=== PATIENT | female | born 1980 | race Caucasian/White ===

== ENCOUNTER → 2018-02-28 19:06 | Outpatient (CLI) | payer OTHER, SELFPAY ==
[2018-03-07 10:34] LABS: HPV APTIMA, High Risk Negative (Negative)
== END ==
PROVIDERS: Family Provider Family Medicine; PCP Family Medicine; Visit Provider Nurse Practitioner Women's Health
DX: R35.0 Frequency of micturition (principal)
CPT/HCPCS: 87086; 87088; 87186; 88175; G0145

== ENCOUNTER → 2018-03-04 08:51 | Outpatient (CLI) | payer SELFPAY ==
--- NOTE | 2018-03-04 08:54 | US_ITS ---
STUDY: ULTRASOUND BREAST - RIGHT REASON FOR EXAM: Female, 38 years old. Bilateral breast lumps. TECHNIQUE: Axial and longitudinal images of the RIGHT breast were performed with a high resolution ultrasound transducer. COMPARISON: Comparison is made with prior mammogram done earlier today. FINDINGS: RIGHT Breast: Multiple cysts are seen in the breast. The largest is at the 9:00 position of the breast at 3 cm from nipple. This measures 1.6 cm x 1.8 cm x 0.8 IMPRESSION: Multiple cysts. ASSESSMENT CATEGORY: BIRADS Category 2: Benign. A letter regarding these results will be sent to the patient by the facility within 30 days. Electronically Signed: Mark Hester MD at 12:16 EDT Tel [phone], Service support , STUDY: ULTRASOUND BREAST - LEFT REASON FOR EXAM: Female, 38 years old. Palpable lump left breast. TECHNIQUE: Axial and longitudinal images of the LEFT breast were performed with a high resolution ultrasound transducer. COMPARISON: Comparison is made with prior mammogram done earlier today. FINDINGS: LEFT Breast: Multiple cysts are seen. The largest measures 2.3 cm x 1.8 cm x 1 cm. This is at the 2:00 position in the breast at 5 cm from the nipple. US/Breast Limited Unilateral IMPRESSION: Multiple cysts. ASSESSMENT CATEGORY: BIRADS Category 2: Benign. A letter regarding these results will be sent to the patient by the facility within 30 days. Electronically Signed: Mark Hester MD at 12:17 EDT Tel [phone], Service support ,
--- NOTE | 2018-03-04 08:54 | BI_ITS ---
MAMMOGRAPHY - BILATERAL DIAGNOSTIC REASON FOR EXAM: Female, 38 years old. Right breast lump. PERTINENT HISTORY: Non-contributory. TECHNIQUE: Digital bilateral breast sha (3D mammographic acquisition) in the CC and MLO projections. 2-D mediolateral oblique (MLO) and craniocaudad (CC) views of both breasts were obtained. CAD: Full Field Digital Mammography with Computer Added Detection was performed. COMPARISON: None. Baseline examination. FINDINGS: Breast Composition: The breasts are extremely dense, which lowers the sensitivity of mammography. There are no dominant masses or suspicious calcifications. No other significant abnormalities are identified. BI/DIAG MAMM W/CAD, BILAT IMPRESSION: Negative diagnostic mammogram. With the patient's history of right breast lump, sonographic correlation is recommended. ASSESSMENT CATEGORY: BIRADS Category 0: Incomplete. Need additional imaging evaluation. A letter regarding these results will be sent to the patient by the facility within 30 days. Approximately 10% of breast cancers are not detected by mammography. A normal mammogram should not delay biopsy of a clinically suspicious abnormality. Electronically Signed: Mark Hester MD at 10:54 EDT Tel [phone], Service support ,
== END ==
PROVIDERS: Family Provider Family Medicine; PCP Family Medicine; Visit Provider Nurse Practitioner Women's Health
DX: N63.10 Unspecified lump in the right breast, unspecified quadrant (principal); N63.20 Unspecified lump in the left breast, unspecified quadrant
CPT/HCPCS: 76642; 77062; 77066; G0279

== ENCOUNTER → 2020-07-11 | Outpatient (CLI) | payer OTHER, SELFPAY ==
[2020-07-11 13:08] VITALS: BMI 30.7
== END | disposition home or self-care (01) ==
LOC: LABSPEC 16:40
PROVIDERS: Referring Provider Nurse Practitioner Women's Health; Visit Provider Nurse Practitioner Women's Health
DX: N89.8 Other specified noninflammatory disorders of vagina (principal)
CPT/HCPCS: 87070; 87205

== ENCOUNTER → 2020-07-18 18:28 | Outpatient (CLI) | payer OTHER, SELFPAY ==
[2020-07-11 13:08] VITALS: BMI 30.7
[2020-07-18 09:21] VITALS: BMI 31.1
--- NOTE | 2020-07-18 18:41 | US_ITS ---
STUDY: ULTRASOUND OF THE FEMALE PELVIS - COMPLETE REASON FOR EXAM: Female, 40 years old. BLOATING AND ABD DISTENSION LMP: 07/04/2020 TECHNIQUE: Transabdominal and transvaginal TECHNICAL QUALITY: Adequate. COMPARISON: None. FINDINGS: The uterus is retroverted and is in a midline position. The uterus measures 8.5 x 6.2 x 5.3 cm. There is a Nabothian cyst of the cervix. The endometrium measures 2 mm in thickness, and is hyperechoic. There is no demonstrated endometrial mass. There is no demonstrated myometrial mass. I.U.D. - The patient does have an I.U.D. The right ovary is visualized. The right ovary measures 3.6 x 2.1 x 2 cm. There is a 1 x 1 x 0.9 cm follicular ovarian cyst.. There is no visualized right adnexal mass or complex lesion. There is normal arterial and normal venous vascularity. The left ovary is visualized. The left ovary measures 3.4 x 2.4 x 1.8 cm. There is no left ovarian cyst or ovarian mass. There is no visualized left adnexal mass or complex lesion. There is normal arterial and normal venous vascularity. There is no fluid in the cul-de-sac. The pre void volume of the bladder was 168 ml. US/Pelvic (Non ) IMPRESSION: Negative female pelvis for acute abnormality. Intrauterine device is present. Electronically Signed: Jacob Alberto, at 4:15 EST Tel , Service support ,
--- NOTE | 2020-07-18 18:57 | US_ITS ---
STUDY: ULTRASOUND OF THE FEMALE PELVIS - COMPLETE REASON FOR EXAM: Female, 40 years old. BLOATING AND ABD DISTENSION LMP: 07/04/2020 TECHNIQUE: Transabdominal and transvaginal TECHNICAL QUALITY: Adequate. COMPARISON: None. FINDINGS: The uterus is retroverted and is in a midline position. The uterus measures 8.5 x 6.2 x 5.3 cm. There is a Nabothian cyst of the cervix. The endometrium measures 2 mm in thickness, and is hyperechoic. There is no demonstrated endometrial mass. There is no demonstrated myometrial mass. I.U.D. - The patient does have an I.U.D. The right ovary is visualized. The right ovary measures 3.6 x 2.1 x 2 cm. There is a 1 x 1 x 0.9 cm follicular ovarian cyst.. There is no visualized right adnexal mass or complex lesion. There is normal arterial and normal venous vascularity. The left ovary is visualized. The left ovary measures 3.4 x 2.4 x 1.8 cm. There is no left ovarian cyst or ovarian mass. There is no visualized left adnexal mass or complex lesion. There is normal arterial and normal venous vascularity. There is no fluid in the cul-de-sac. The pre void volume of the bladder was 168 ml. US/Transvaginal Non- IMPRESSION: Negative female pelvis for acute abnormality. Intrauterine device is present. Electronically Signed: Jacob Alberto, at 4:15 EST Tel , Service support ,
== END ==
PROVIDERS: Referring Provider Obstetrics & Gynecology; Visit Provider Obstetrics & Gynecology
DX: R14.0 Abdominal distension (gaseous) (principal)
CPT/HCPCS: 76830; 76856

== ENCOUNTER → 2020-08-10 09:37 | Outpatient (CLI) | payer OTHER, SELFPAY ==
[2020-07-11 13:08] VITALS: BMI 30.7
[2020-07-18 09:21] VITALS: BMI 31.1
--- NOTE | 2020-08-10 09:39 | BI_ITS ---
MAMMOGRAPHY - BILATERAL SCREENING REASON FOR EXAM: Female, 40 years old. Routine annual screening examination. PERTINENT HISTORY: Non-contributory. TECHNIQUE: Digital bilateral breast danny (3D mammographic acquisition) in the CC and MLO projections. 2-D mediolateral oblique (MLO) and craniocaudad (CC) views of both breasts were obtained. CAD: Full Field Digital Mammography with Computer Added Detection was performed. COMPARISON: Comparison is made with prior study dated 03/04/2018. FINDINGS: Breast Composition: The breasts are extremely dense, which lowers the sensitivity of mammography. There is a 4.8 cm x 3.5 cm well-defined nodule in the upper lateral portion of the left breast. Correlation with ultrasound is recommended. There is a 1.5 cm x 1.5 cm well-defined nodule in the medial retroareolar region of the right breast. Correlation with ultrasound is recommended. No other significant abnormalities are identified. BI/SCREEN MAMM (CAD) W/DANNY BILAT IMPRESSION: Bilateral breast nodules as described. Correlation with ultrasound is recommended. ASSESSMENT CATEGORY: BIRADS Category 0: Incomplete. Need additional imaging evaluation. A letter regarding these results will be sent to the patient by the facility within 30 days. Approximately 10% of breast cancers are not detected by mammography. A normal mammogram should not delay biopsy of a clinically suspicious abnormality. [id number] Electronically Signed: Mark Hester, at 9:14 EST , Service support ,
== END ==
PROVIDERS: Referring Provider Obstetrics & Gynecology; Visit Provider Obstetrics & Gynecology
DX: Z12.31 Encounter for screening mammogram for malignant neoplasm of breast (principal)
CPT/HCPCS: 77063; 77067

== ENCOUNTER → 2020-08-20 12:19 | Outpatient (CLI) | payer OTHER, SELFPAY ==
[2020-07-18 09:21] VITALS: BMI 31.1
--- NOTE | 2020-08-20 12:21 | US_ITS ---
STUDY: ULTRASOUND BREAST - RIGHT REASON FOR EXAM: Female, 40 years old. Abnormal screening mammogram. History of breast cysts. TECHNIQUE: Axial and longitudinal images of the RIGHT breast were performed with a high resolution ultrasound transducer. # OF IMAGES: 38 COMPARISON: Comparison is made with prior mammogram dated 08/10/2020 and prior sonogram dated 03/04/2018. FINDINGS: RIGHT Breast: There are 2 retroareolar cysts seen. The larger measures 1.3 cm x 0.8 cm x 0.6 cm. A septation is seen within. IMPRESSION: There are 2 retroareolar cysts. ASSESSMENT CATEGORY: BIRADS Category 2: Benign. A letter regarding these results will be sent to the patient by the facility within 30 days. Electronically Signed: Mark Mir, at 13:47 EST , Service support , STUDY: ULTRASOUND BREAST - LEFT REASON FOR EXAM: Female, 40 years old. Abnormal screening mammogram. TECHNIQUE: Axial and longitudinal images of the LEFT breast were performed with a high resolution ultrasound transducer. # OF IMAGES: 38 COMPARISON: Comparison is made with prior mammogram dated 08/10/2020 and prior sonogram of the left breast dated 03/04/2018. FINDINGS: LEFT Breast: 2 cysts are seen at the 2 o''clock position of the breast at 4 and 5 cm from the nipple. The largest cyst measures 3.5 cm x 4.2 cm x 1.1 cm. US/Breast Limited Unilateral IMPRESSION: Retroareolar cysts. ASSESSMENT CATEGORY: BIRADS Category 2: Benign. A letter regarding these results will be sent to the patient by the facility within 30 days. Electronically Signed: Mark Hester, at 13:49 EST , Service support ,
== END ==
PROVIDERS: Referring Provider Nurse Practitioner Women's Health; Visit Provider Nurse Practitioner Women's Health
DX: R92.8 Other abnormal and inconclusive findings on diagnostic imaging of breast (principal)
CPT/HCPCS: 76642

== ENCOUNTER 2022-06-03 15:58 | Outpatient (CLI) | payer OTHER, SELFPAY ==
[2022-06-03 16:12] LABS: Mucous, Urine 0 SEEN /hpf (<or=2+); White Blood Cells 0 SEEN /hpf (0-5)
[2022-06-03 16:30] LABS: Color, Urine Straw (Yellow); Glucose, Dipstick Normal (Normal); Ketone-Dipstick Negative (Negative); Leukocyte Esterase-Dipstick Negative /ul (Negative); Nitrite-Dipstick Negative (Negative); Occult Blood-Urine 10 /ul (Negative); Protein-Dipstick Negative (Negative); Specific Gravity, Urine 1.005 (1.002-1.030); Urine Bilirubin Dipstick Negative (Negative); Urine Clarity Clear (Clear); Urine Urobilinogen Normal (Normal)
[2022-06-03 17:03] LABS: Bacteria RARE /hpf (None Seen); Red Blood Cells-Urine 0-5 SEEN /hpf (0-5); Squamous Epithelial Cells - UA 0-5 SEEN /hpf (5-10)
== END 2022-06-03 23:59 | disposition home or self-care (01) ==
LOC: LABSPEC 15:59
PROVIDERS: Referring Provider Physician Assistant; Visit Provider Physician Assistant
DX: R39.15 Urgency of urination (principal)
CPT/HCPCS: 81001; 87086; 87088

== ENCOUNTER → 2022-06-15 | Outpatient (CLI) | payer OTHER, SELFPAY | END | disposition home or self-care (01) | LOC: LABSPEC 06-16 07:24 | PROVIDERS: Visit Provider Nurse Practitioner Women's Health | DX: N89.8 Other specified noninflammatory disorders of vagina (principal) | CPT/HCPCS: 87070; 87205 ==

== ENCOUNTER → 2022-06-25 | Outpatient (CLI) | payer OTHER, SELFPAY ==
--- NOTE | 2022-06-25 13:12 | BI_ITS ---
MAMMOGRAPHY - BILATERAL SCREENING REASON FOR EXAM: Female, 42 years old. Routine annual screening examination. PERTINENT HISTORY: Non-contributory. TECHNIQUE: Digital bilateral breast danny (3D mammographic acquisition) in the CC and MLO projections. 2-D mediolateral oblique (MLO) and craniocaudad (CC) views of both breasts were obtained. CAD: Full Field Digital Mammography with Computer Added Detection was performed. COMPARISON: Comparison is made with prior study 08/10/2020 and 03/04/2018. FINDINGS: Breast Composition: The breasts are extremely dense, which lowers the sensitivity of mammography. There is a 4.2 cm x 4.7 cm well-defined nodule in the upper lateral portion of the left breast. This also evidence of a 1.5 cm x 1.5 cm well-defined nodule in the retroareolar region of the right breast. These were demonstrated to be cysts on prior sonogram. No other significant abnormalities are identified. There has been no significant change since the prior study. BI/SCRN MAMM (CAD)W/DANNY BILAT IMPRESSION: Stable bilateral screening mammogram. Yearly follow-up mammogram recommended. (A) ASSESSMENT CATEGORY: BIRADS Category 2: Benign. A letter regarding these results will be sent to the patient by the facility within 30 days. Approximately 10% of breast cancers are not detected by mammography. A normal mammogram should not delay biopsy of a clinically suspicious abnormality. [id number] Electronically Signed: Mark Hester MD at 14:22 EDT ,
== END | disposition home or self-care (01) ==
LOC: OPBI 13:11
PROVIDERS: Referring Provider Nurse Practitioner Women's Health; Visit Provider Nurse Practitioner Women's Health
DX: Z12.31 Encounter for screening mammogram for malignant neoplasm of breast (principal)
CPT/HCPCS: 77063; 77067

== ENCOUNTER 2022-07-22 11:05 | Outpatient (CLI) | payer OTHER, SELFPAY ==
[2022-07-22 11:17] LABS: Bacteria 0 SEEN /hpf (None Seen); Mucous, Urine 0 SEEN /hpf (<or=2+); White Blood Cells 0 SEEN /hpf (0-5)
[2022-07-22 12:33] LABS: Absolute Lymphocyte Count 2.54 X10^3/uL (0.83-4.51); Absolute Neutrophil Count 2.9 X10^3/uL (2.0-7.7); Basophil# 0.03 X10^3/uL; Basophil% 0.5 % (0-1); Eosinophil# 0.17 X10^3/uL; Eosinophils% 2.8 % (0-5); Hematocrit 45.5 % (37-47); Hemoglobin 14.7 g/dL (12.0-15.0); Lymphocyte # 2.54 X10^3/ul (0.83-4.51); Lymphocyte % 41.2 % (19-41); Mean Corp Hgb Conc 32.3 g/dL (32-36); Mean Corpuscular Hgb 30.9 pg (27.0-32.0); Mean Corpuscular Volume 95.6 fL (81-99); Mean Platelet Vol. 10.5 fl (6.2-12.0); Monocyte# 0.48 X10^3/uL; Monocyte% 7.8 % (0-10); NRBC Flagged by Analyzer 0 % (0-5); Neutrophil # 2.92 X10^3/uL (2.7-7.7); Neutrophil % 47.4 % (47-70); Platelet Count 202 K/mm3 (150-450); RBC Distribution Width CV 13.1 % (11.6-14.6); RBC Distribution Width SD 46.6 fl (35.1-43.9); Red Blood Count 4.76 M/mm3 (4.2-5.4); White Blood Count 6.2 K/mm3 (4.4-11.0)
[2022-07-22 12:36] LABS: Color, Urine Yellow (Yellow); Glucose, Dipstick Normal (Normal); Ketone-Dipstick Negative (Negative); Leukocyte Esterase-Dipstick Negative /ul (Negative); Nitrite-Dipstick Negative (Negative); Occult Blood-Urine 25 /ul (Negative); Protein-Dipstick Negative (Negative); Urine Bilirubin Dipstick Negative (Negative); Urine Clarity Sl. Cloudy (Clear); Urine Urobilinogen Normal (Normal)
[2022-07-22 12:50] LABS: Red Blood Cells-Urine 0-5 SEEN /hpf (0-5); Squamous Epithelial Cells - UA 0-5 SEEN /hpf (5-10)
[2022-07-22 13:05] LABS: ALB/GLOB Ratio 1.3 RATIO (0.9-2.4); AST(SGOT) 10 U/L (15-37); Alanine Aminotransfer ALT/SGPT 19 U/L (13-56); Albumin, Serum 3.9 g/dL (3.2-5.0); Alkaline Phosphatase 61 U/L (45-117); Anion Gap 4 (5-15); BUN 6 mg/dL (7-18); BUN/Creat Ratio 9.3 RATIO (10-20); Calcium,Total 8.2 mg/dL (8.5-10.1); Chloride 110 mmol/L (98-107); Cholesterol 142 mg/dL (200); Creatinine, Serum 0.64 mg/dL (0.55-1.02); EST Glomerular Filtration Rate 107 mL/min (>60); Est Glom Filt Rate - Afr Amer 129 mL/min (>60); Glucose 84 mg/dL (74-106); High Density Lipoprotein 54 mg/dL; Potassium 3.8 mmol/L (3.5-5.1); Protein, Total 6.9 g/dL (6.4-8.2); Sodium Level 139 mmol/L (136-145); Thyroid Stim Hormone (TSH) 0.79 uIU/mL (0.358-3.74); Triglycerides 65 mg/dL; Very Low Density Lipoprotein 13 mg/dL (5-40)
== END 2022-07-22 23:59 | disposition home or self-care (01) ==
LOC: BIMLAB 11:05
PROVIDERS: PCP Internal Medicine; Referring Provider Internal Medicine; Visit Provider Internal Medicine
DX: R07.9 Chest pain, unspecified (principal); R39.15 Urgency of urination; F41.9 Anxiety disorder, unspecified
CPT/HCPCS: 36415; 80053; 80061; 81001; 84443; 85025

== ENCOUNTER → 2023-09-13 | Outpatient (CLI) | payer OTHER, SELFPAY ==
--- NOTE | 2023-09-13 08:56 | US_ITS ---
STUDY: ULTRASOUND BREAST - LEFT REASON FOR EXAM: Female, 43 years old. Left breast lump. TECHNIQUE: Axial and longitudinal images of the LEFT breast were performed with a high resolution ultrasound transducer. # OF IMAGES: 40 COMPARISON: Comparison is made with prior mammogram done earlier in the day as well as prior sonogram of the right breast dated August 20, 2020. FINDINGS: LEFT Breast: Multiple cysts are seen in the right breast. The largest cyst measures 3.7 cm x 5.1 cm x 3.1 cm. This is at the 1:00 position in the breast at 4 cm from the nipple. US/Breast Limited Unilateral IMPRESSION: Multiple left breast cysts. ASSESSMENT CATEGORY: BIRADS Category 2: Benign. A letter regarding these results will be sent to the patient by the facility within 30 days. Electronically Signed: Mark Hester MD at 15:13 EST ,
--- NOTE | 2023-09-13 08:56 | BI_ITS ---
MAMMOGRAPHY - BILATERAL DIAGNOSTIC REASON FOR EXAM: Female, 43 years old. Two-week history of left breast lump. PERTINENT HISTORY: Non-contributory. TECHNIQUE: Digital bilateral breast sha (3D mammographic acquisition) in the CC and MLO projections. 2-D mediolateral oblique (MLO) and craniocaudad (CC) views of both breasts were obtained. CAD: Full Field Digital Mammography with Computer Added Detection was performed. COMPARISON: Comparison is made with prior study June 25, 2022 and August 10, 2020. FINDINGS: Breast Composition: The breasts are extremely dense, which lowers the sensitivity of mammography. The palpable lump corresponds to a 4.5 cm x 4.6 cm well-defined nodule in the slightly upper retroareolar region of the left breast. There is also evidence of a 2 cm x 2.1 cm well-defined nodule in the anterior upper lateral aspect of the left breast. Stable 1.5 cm x 1.5 cm well-defined nodule in the retroareolar region of the right breast. No other significant abnormalities are identified. BI/DIAG MAMM W/CAD, BILAT IMPRESSION: The palpable lump corresponds to a 4.5 cm x 4.6 cm well-defined nodule in the slightly upper retroareolar region of the left breast as described. Correlation with ultrasound is recommended for further evaluation. ASSESSMENT CATEGORY: BIRADS Category 0: Incomplete. Need additional imaging evaluation. A letter regarding these results will be sent to the patient by the facility within 30 days. Approximately 10% of breast cancers are not detected by mammography. A normal mammogram should not delay biopsy of a clinically suspicious abnormality. Electronically Signed: Mark Hester MD at 10:31 EST ,
--- OUTSIDE RECORDS SUMMARY | 2023-09-13 09:21 | XMS RPT_ITS | CCD ---
Author Name Unknown Address [address] [place] [address] Organization [facility] Care Team Providers Care Retail Customer Service Representative Name Role Phone Gage DOBBS, Kristine Craig Primary Care Provider Medications Current Medications Medication Drug Class(es) Dates Sig (Normalized) Sig (Original) cephalexin 500 mg oral capsule (1 source) Cephalosporin Antibacterial Start: 06-29-2023 End: 07-06-2023 take 1 capsule by mouth twice daily cephALEXin (KEFLEX) 500 mg capsule Take 1 capsule by mouth two times a day for 7 days. 14 capsule 0 06/29/2023 07/06/2023 Active Completed/Discontinued Medications Medication Drug Class(es) Dates Sig (Normalized) Sig (Original) atomoxetine (1 source) Norepinephrine Reuptake Inhibitor ATOMOXETINE HCL (STRATTERA ORAL) Take by mouth. 0 Active Problems Active Problems Problem Classification Problem Date Documented Da te Episodic/Chronic Genitourinary symptoms and ill-defined conditions (1 source) Increased frequency of urination; Translations: [Frequency of micturition] 06-29-2023 Episodic Mood disorders (1 source) Dysthymia; Translations: [Dysthymic disorder] 08-25-2021 Chronic Substance-related disorders (1 source) Tobacco user; Translations: [Nicotine dependence, unspecified, uncomplicated] Onset: 09-21-2006 09-21-2006 Chronic Past or Other Problems Problem Classification Problem Date Documented Date Episodic/Chronic Other complications of (1 source) RhD negative; Translations: [Other specified related conditions, unspecified trimester] Onset: 02-04-2013 08-25-2021 Episodic Other complications of (1 source) Previous operation to cervix affecting ; Translations: [Maternal care for other abnormalities of cervix, unspecified trimester] Onset: 02-04-2013 08-25-2021 Episodic Other and delivery including normal (1 source) Normal ; Translations: [Encounter for supervision of other normal , unspecified trimester] Onset: 06-13-2013 08-25-2021 Episodic Residual codes; unclassified (1 source) History of anesthesia problem; Translations: [Personal history of other specified conditions] Onset: 02-04-2013 08-25-2021 Episodic Screening and history of mental health and substance abuse codes (2 sources) Stopped smoking; Translations: [Personal history of nicotine dependence] Onset: 02-04-2013 08-25-2021 Episodic Results Test Name Value Interpretation Reference Range Facil ity Vital Signs Date Time Vital Sign Value Performing Clinician Faci lity 06-29-2023 12:33-0400 Body temperature 98.2 [degF] Ralph Caldwell INSTRUMENT AND ELECTRICAL TECHNICIAN.GLAZIER HELPER Work Phone: [facility] 06-29-2023 12:33-0400 Body weight 78.47 kg Ralph Caldwell INSTRUMENT AND ELECTRICAL TECHNICIAN.GLAZIER HELPER Work Phone: [facility] 06-29-2023 12:33-0400 Diastolic blood pressure 80 mm[Hg] Ralph Caldwell INSTRUMENT AND ELECTRICAL TECHNICIAN.GLAZIER HELPER Work Phone: [facility] 06-29-2023 12:33-0400 Heart rate 88 /min Ralph Caldwell INSTRUMENT AND ELECTRICAL TECHNICIAN.GLAZIER HELPER Work Phone: [facility] 06-29-2023 12:33-0400 Respiratory rate 16 /min Ralph Caldwell INSTRUMENT AND ELECTRICAL TECHNICIAN.GLAZIER HELPER Work Phone: [facility] 06-29-2023 12:33-0400 SaO2% (BldA) [Mass fraction] 99 % aRlph Caldwell INSTRUMENT AND ELECTRICAL TECHNICIAN.GLAZIER HELPER Work Phone: [facility] 06-29-2023 12:33-0400 Systolic blood pressure 122 mm[Hg] Ralph Caldwell INSTRUMENT AND ELECTRICAL TECHNICIAN.GLAZIER HELPER Work Phone: [facility] Encounters Encounter Date Encounter Type Care Provider Facility Start: 06-29-2023 End: 06-29-2023 ambulatory KRISTINE HARRELL Facility:[facility] Start: 06-29-2023 End: 06-29-2023 Office outpatient visit 25 minutes Ralph Caldwell APRN.ANITA Work Phone: [facility] Procedures Date Procedure Procedure Detail Performing Clinician Start: 06-29-2023 Urnls dip stick/tabl et rgnt auto w/o microscopy Kayleen Pathak APRN.CNP Work Phone: Start: 02-04-2013 H/O: section History of C-s ection Ralph Caldwell APRN.GLAZIER HELPER Work Phone: Plan of Treatment Date Care Activity Detail Author Start: 07-11-2023 Urine microalbumin profile DTaP,Tdap,Td Vaccine (2 - Td or Tdap) [facility] Start: 04-30-2023 Influenza vaccination Influenza Vaccine (#1) [facility] Start: 2020 Mammography Mammogram Screening [facility] Start: 01-28-2017 HPV Testing HPV Testing [facility] Start: 01-28-2017 Pap Testing Pap Testing [facility] Start: 01-03-1986 Pneumococcal vaccination Pneumococcal Vaccine (1 - PCV) [facility] Start: 1980 Covid-19 Vaccine (#1) Covid-19 Vaccine (#1) [facility] Start: 1980 Hepatitis B Vaccine (1 of 3 - 3-dose series) Hepatitis B Vaccine (1 of 3 - 3-dose series) [facility] Bacteria identified in Urine by Culture URINE CULTURE Microbiology Routine Urinary frequency 06/29/2023 1:21 PM EDT [facility] Work Phone: Immunizations Immunization Date Immunization Notes Care Provider Fa denice 07-11-2013 RHO(D) immune globulin- IV or IM Ralph Caldwell APRN.GLAZIER HELPER Work Phone: [facility] Work Phone: 07-11-2013 tetanus toxoid, reduced diphtheria toxoid, and acellular pertussis vaccine, adsorbed Ralph Caldwell APRN.GLAZIER HELPER Work Phone: [facility] Work Phone: 06-13-2013 influenza virus vaccine, unspecified formulation Ralph Caldwell APRN.GLAZIER HELPER Work Phone: [facility] 11-09-2006 RHO(D) immune globulin- IV or IM Ralph Caldwell APRN.GLAZIER HELPER Work Phone: [facility] Work Phone: Payers Date Payer Category Payer Unknown MMO MMO [employer] PPO [id number] 2022-Present [phone] [address] [place] [address] PPO [id number] 2022 Unknown [id number] Social History Date Type Detail Facility Start: 06-29-2023 Tobacco smoking stat [facility] Smokes tobacco daily [facility] Work Phone: End: 01-28-2013 History of tobacco use Cigarette Smoker [facility] Work Phone: Start: 06-29-2023 Tobacco use and exposure Smokeless tobacco non-user [facility] Work Phone: Start: 06-29-2023 Alcohol intake Current drinke r of alcohol (finding) [facility] Start: 08-06-2020 End: 06-29-2023 History of Social function [facility] Start: 08-06-2020 End: 06-29-2023 Tobacco use panel [facility] National Score (1-100), lower number is lower risk Not on file [facility] Start: 1980 Sex Assigned At Not on file [facility] Progress note 06-29-2023 Note Date & Type Note Facility 06-29-2023 Note HNO ID: [id number] Author: Ralph Caldwell APRN.ANITA Service: ? Author Type: Nurse Practitioner Type: Progress Notes Filed: 06/29/2023 12:55 PM Note Text: Subjective HPI A nontoxic appearing female presents to urgent care with chief complaint of possible UTI. Duration of symptoms 1 week. Associated symptoms dysuria, frequency, and urgency. Does have some transient back pain. This has been present for a couple months. Pain comes and goes. Patient has history of UTIs in past with similar signs and symptoms. Patient denies the use of any fqcm-ziv-drzkfod medications or home remedies for symptom management. Patient states pain is a 3/10. Patient denies any fevers, flank pain, abdominal pain, nausea, vomiting, vaginal discharge, chance of STDs, saddle anesthesia, incontinence, chance of , or urological abnormalities. Past medical history prescription medication use allergies reviewed. .Patient presents with: Urinary Frequency: back cramping and aches x couple months, strong odor x 1 week PAST MEDICAL HISTORY Diagnosis Date Abnormal glandular Papanicolaou smear of cervix 2010 Abn. Pap smear (cervix) Anemia WITH 1ST Complication of anesthesia Dysthymic disorder Depression with anxiety (non-psychotic) Rh negative status during 02/04/2013 Tobacco use disorder PAST SURGICAL HISTORY Procedure Laterality Date DELIVERY ONLY 02/04/2007 DELIVERY ONLY 11/09/1998 , low cervical DELIVERY ONLY 09/26/13 , low transverse LEEP PROCEDURE (TRANSPORT COORDINATOR DEPT)_*FL 10/2010 ALLERGIES Patient has no known allergies. MEDICATIONS levonorgestrel (MIRENA) 20 mcg/24 hour (5 years) IUD 1 Each by INTRAUTERINE route continuous. mometasone (ELOCON) 0.1 % cream Apply 1 application to affected area once daily. (Patient not taking: Reported on 11/25/2019 ) ATOMOXETINE HCL (STRATTERA ORAL) Take by mouth. Lidocaine 1% with epi buffered nursing order Lidocaine 1% with epinephrine, 8.4% sodium Bicarbonate for injection. Local infiltration of sufficient quantity to achieve anesthesia. (Patient not taking: Reported on 11/25/2019 ) FAMILY HISTORY Problem Relation Age of Onset Arthritis Maternal Grandmother osteo Asthma Father Cancer Maternal Aunt EYE AND LUNG Diabetes Maternal Grandmother Emphysema Maternal Uncle Heart Maternal Grandmother [place] Hypertension Maternal Grandmother Stroke Maternal Grandmother other (ENDOMETRIOSIS [Other]) Sister Cancer Paternal Grandfather leukemia Aneurysm Paternal Grandfather brain anyurism Hypertension Mother Social History Tobacco Use Smoking status: Every Day Years: 15 Types: Cigarettes Last attempt to quit: 01/28/2013 Years since quittin.4 Smokeless tobacco: Never Substance Use Topics Alcohol use: Yes Comment: RARELY BUT NOT WHILE Drug use: No BP 122/80 Pulse 88 Temp 36.8 ?C (98.2 ?F) Resp 16 Wt 78.5 kg (173 lb) LMP 12/19/2012 SpO2 99% Review of Systems Constitutional: Negative for chills, fever and malaise/fatigue. HENT: Negative for congestion, ear discharge, ear pain, sinus pain and sore throat. Eyes: Negative for blurred vision, pain, discharge and redness. Respiratory: Negative for cough, hemoptysis, sputum production, shortness of breath, wheezing and stridor. Cardiovascular: Negative for chest pain. Gastrointestinal: Negative for abdominal pain, diarrhea, nausea and vomiting. Genitourinary: Positive for dysuria, frequency and urgency. Negative for flank pain and hematuria. Musculoskeletal: Negative for myalgias. Skin: Negative for itching and rash. Neurological: Negative for dizziness and headaches. Objective Physical Exam Constitutional: General: She is not in acute distress. Appearance: She is not diaphoretic. HENT: Head: Normocephalic. Eyes: Conjunctiva/sclera: Conjunctivae normal. Pupils: Pupils are equal, round, and reactive to light. Cardiovascular: Rate and Rhythm: Normal rate and regular rhythm. Heart sounds: Normal heart sounds. Pulmonary: Effort: Pulmonary effort is normal. No tachypnea, accessory muscle usage or respiratory distress. Breath sounds: Normal breath sounds. No stridor. No wheezing, rhonchi or rales. Abdominal: General: There is no distension. Palpations: Abdomen is soft. Tenderness: There is no abdominal tenderness. There is no guarding or rebound. Musculoskeletal: Cervical back: Normal range of motion and neck supple. No edema, erythema, rigidity or tenderness. No pain with movement. Normal range of motion. Lymphadenopathy: Cervical: No cervical adenopathy. Skin: General: Skin is warm and dry. Neurological: Mental Status: She is alert and oriented to person, place, and time. ASSESSMENT/PLAN: 1. Urinary frequency - ICD9: 788.41, ICD10: R35.0 - UA DIP, URINE (POC) - URINE CULTURE Leukocytes blood noted on urine dip. Treat for acute (more content not included)... [facility] History of Present illness Narrative 06-29-2023 Ralph Caldwell APRN.GLAZIER HELPER - 06/29/2023 12:41 PM EDT Note Date & Type Note Facility 06-29-2023 History of Presen t illness Narrative Subjective HPI A nontoxic appearing female presents to urgent care with chief complaint of possible UTI. Duration of symptoms 1 week. Associated symptoms dysuria, frequency, and urgency. Does have some transient back pain. This has been present for a couple months. Pain comes and goes. Patient has history of UTIs in past with similar signs and symptoms. Patient denies the use of any rlov-pel-jnibqci medications or home remedies for symptom management. Patient states pain is a 3/10. Patient denies any fevers, flank pain, abdominal pain, nausea, vomiting, vaginal discharge, chance of STDs, saddle anesthesia, incontinence, chance of , or urological abnormalities. Past medical history prescription medication use allergies reviewed. .Patient presents with: Urinary Frequency: back cramping and aches x couple months, strong odor x 1 week PAST MEDICAL HISTORY Diagnosis Date Abnormal glandular Papanicolaou smear of cervix 2010 Abn. Pap smear (cervix) Anemia WITH 1ST Complication of anesthesia Dysthymic disorder Depression with anxiety (non-psychotic) Rh negative status during 02/04/2013 Tobacco use disorder PAST SURGICAL HISTORY Procedure Laterality Date DELIVERY ONLY 02/04/2007 DELIVERY ONLY 11/09/1998 , low cervical DELIVERY ONLY 09/26/13 , low transverse LEEP PROCEDURE (TRANSPORT COORDINATOR DEPT)_*FL 10/2010 ALLERGIES Patient has no known allergies. MEDICATIONS levonorgestrel (MIRENA) 20 mcg/24 hour (5 years) IUD 1 Each by INTRAUTERINE route continuous. mometasone (ELOCON) 0.1 % cream Apply 1 application to affected area once daily. (Patient not taking: Reported on 11/25/2019 ) ATOMOXETINE HCL (STRATTERA ORAL) Take by mouth. Lidocaine 1% with epi buffered nursing order Lidocaine 1% with epinephrine, 8.4% sodium Bicarbonate for injection. Local infiltration of sufficient quantity to achieve anesthesia. (Patient not taking: Reported on 11/25/2019 ) FAMILY HISTORY Problem Relation Age of Onset Arthritis Maternal Grandmother osteo Asthma Father Cancer Maternal Aunt EYE AND LUNG Diabetes Maternal Grandmother Emphysema Maternal Uncle Heart Maternal Grandmother [place] Hypertension Maternal Grandmother Stroke Maternal Grandmother other (ENDOMETRIOSIS [Other]) Sister Cancer Paternal Grandfather leukemia Aneurysm Paternal Grandfather brain anyurism Hypertension Mother Social History Tobacco Use Smoking status: Every Day Years: 15 Types: Cigarettes Last attempt to quit: 01/28/2013 Years since quittin.4 Smokeless tobacco: Never Substance Use Topics Alcohol use: Yes Comment: RARELY BUT NOT WHILE Drug use: No BP 122/80 Pulse 88 Temp 36.8 C (98.2 F) Resp 16 Wt 78.5 kg (173 lb) LMP 12/19/2012 SpO2 99% Review of Systems Constitutional: Negative for chills, fever and malaise/fatigue. HENT: Negative for congestion, ear discharge, ear pain, sinus pain and sore throat. Eyes: Negative for blurred vision, pain, discharge and redness. Respiratory: Negative for cough, hemoptysis, sputum production, shortness of breath, wheezing and stridor. Cardiovascular: Negative for chest pain. Gastrointestinal: Negative for abdominal pain, diarrhea, nausea and vomiting. Genitourinary: Positive for dysuria, frequency and urgency. Negative for flank pain and hematuria. Musculoskeletal: Negative for myalgias. Skin: Negative for itching and rash. Neurological: Negative for dizziness and headaches. Objective Physical Exam Constitutional: General: She is not in acute distress. Appearance: She is not diaphoretic. HENT: Head: Normocephalic. Eyes: Conjunctiva/sclera: Conjunctivae normal. Pupils: Pupils are equal, round, and reactive to light. Cardiovascular: Rate and Rhythm: Normal rate and regular rhythm. Heart sounds: Normal heart sounds. Pulmonary: Effort: Pulmonary effort is normal. No tachypnea, accessory muscle usage or respiratory distress. Breath sounds: Normal breath sounds. No stridor. No wheezing, rhonchi or rales. Abdominal: General: There is no distension. Palpations: Abdomen is soft. Tenderness: There is no abdominal tenderness. There is no guarding or rebound. Musculoskeletal: Cervical back: Normal range of motion and neck supple. No edema, erythema, rigidity or tenderness. No pain with movement. Normal range of motion. Lymphadenopathy: Cervical: No cervical adenopathy. Skin: General: Skin is warm and dry. Neurological: Mental Status: She is alert and oriented to person, place, and time. ASSESSMENT/PLAN: 1. Urinary frequency - ICD9: 788.41, ICD10: R35.0 - UA DIP, URINE (POC) - URINE CULTURE Leukocytes blood noted on urine dip. Treat for acute cystitis. If urine culture is negative follow-up with PCP for repeat evaluation and care. Patient was educated on supportive therapies. Patient was instructed to immediately proceed to emergency room for any new, worsening, or symptoms lasting longer than anticipated. The patient's clinical presentation is otherwise unremarkable at this time. Based on exam and clinical finding, the patient is stable for discharge. Plan of care was discussed with patient. Patient verbalizes understanding and agrees to plan of care. This note was generated using [employer] software. It may contain errors in wording, punctuation, or spelling. Ralph Caldwell APRN.ANITA documented in this encounter [facility] History of Past illness Narrative 02-04-2013 Note Date & Type Note Facility documented as of this encounter (statuses as of 06/29/2023) [facility] Evaluation note Note Date & Type Note Facility documented in this encounter [facility] Summary Purpose Family History No Family History Records Found Advance Directives No Advanced Directives Records Found Additional Source Comments Source Comments (unrecognize d section and content) In the event this informatio n is protected by the Federal Confidentiality of Alcohol and Drug Abuse Patient Records regulations: The Federal rules restrict any use of the information to criminally investigate or prosecute any alcohol or drug abuse patient.[facility] Reason for Visit (unrecogniz ed section and content) Care Teams (unrecognized sec tion and content) INFORMATION SOURCE (unrecogn ized section and content) FOR RECORDS PERTAINING TO PATIENTS WHO ARE OR HAVE BEEN ENROLLED IN A CHEMICAL DEPENDENCY/SUBSTANCEABUSE PROGRAM, SOME INFORMATION MAY BE OMITTED. This clinical summary was aggregated from multiple sources. Caution should be exercised in using it in the provision of clinical care. This summary normalizes information from multiple sources, and as a consequence, information in this document may materially change the coding, format and clinical context of patient data. In addition, data may be omitted in some cases. CLINICAL DECISIONS SHOULD BE BASED ON THE PRIMARY CLINICAL RECORDS. [facility], [facility]. provides no warranty or guarantee of the accuracy or completeness of information in this document.
== END | disposition home or self-care (01) ==
PROVIDERS: PCP Internal Medicine; Referring Provider Nurse Practitioner Women's Health; Visit Provider Nurse Practitioner Women's Health
DX: N63.22 Unspecified lump in the left breast, upper inner quadrant (principal); N63.21 Unspecified lump in the left breast, upper outer quadrant; N63.10 Unspecified lump in the right breast, unspecified quadrant
CPT/HCPCS: 76642; 77062; 77066; G0279

== ENCOUNTER → 2024-02-11 | Outpatient (CLI) | payer OTHER, SELFPAY ==
[2024-02-11 16:35] LABS: Absolute Lymphocyte Count 2.23 X10^3/uL (0.83-4.51); Absolute Neutrophil Count 4.5 X10^3/uL (2.0-7.7); Basophil# 0.03 X10^3/uL; Basophil% 0.4 % (0-1); Eosinophil# 0.07 X10^3/uL; Eosinophils% 0.9 % (0-5); Hemoglobin 13.5 g/dL (12.0-15.0); Lymphocyte # 2.23 X10^3/ul (0.83-4.51); Lymphocyte % 30.2 % (19-41); Mean Corp Hgb Conc 32.9 g/dL (32-36); Mean Corpuscular Hgb 29.9 pg (27.0-32.0); Mean Corpuscular Volume 90.9 fL (81-99); Mean Platelet Vol. 10.6 fl (6.2-12.0); Monocyte# 0.55 X10^3/uL; Monocyte% 7.4 % (0-10); NRBC Flagged by Analyzer 0 % (0-5); Neutrophil # 4.49 X10^3/uL (2.7-7.7); Neutrophil % 60.8 % (47-70); Platelet Count 181 K/mm3 (150-450); RBC Distribution Width CV 12.8 % (11.6-14.6); RBC Distribution Width SD 42.5 fl (35.1-43.9); Red Blood Count 4.51 M/mm3 (4.2-5.4); White Blood Count 7.4 K/mm3 (4.4-11.0)
[2024-02-12 01:17] LABS: ALB/GLOB Ratio 1.3 RATIO (0.9-2.4); AST(SGOT) 15 U/L (15-37); Alanine Aminotransfer ALT/SGPT 16 U/L (13-56); Albumin, Serum 3.9 g/dL (3.2-5.0); Alkaline Phosphatase 64 U/L (45-117); Anion Gap 7 (5-15); BUN 8 mg/dL (7-18); BUN/Creat Ratio 11.7 RATIO (10-20); Calcium,Total 8.8 mg/dL (8.5-10.1); Chloride 111 mmol/L (98-107); Cholesterol 145 mg/dL (200); Creatinine, Serum 0.68 mg/dL (0.55-1.02); EST Glomerular Filtration Rate 100 mL/min (>60); Est Glom Filt Rate - Afr Amer 120 mL/min (>60); Free T4 1.06 ng/dL (0.76-1.46); Glucose 105 mg/dL (74-106); High Density Lipoprotein 47 mg/dL; Magnesium 2.5 mg/dL (1.6-2.6); Potassium 3.9 mmol/L (3.5-5.1); Protein, Total 6.9 g/dL (6.4-8.2); Sodium Level 143 mmol/L (136-145); Triglycerides 110 mg/dL; Very Low Density Lipoprotein 22 mg/dL (5-40)
== END | disposition home or self-care (01) ==
LOC: BIMLAB 15:29
PROVIDERS: PCP Internal Medicine; Referring Provider Nurse Practitioner; Visit Provider Nurse Practitioner
DX: R55 Syncope and collapse (principal); Z87.898 Personal history of other specified conditions
CPT/HCPCS: 36415; 80053; 80061; 83735; 84439; 84443; 85025

== ENCOUNTER 2024-02-15 17:04 | Outpatient (CLI) | payer OTHER, SELFPAY ==
[2024-02-15 15:59] LABS: Bacteria 0 SEEN /hpf (None Seen); Mucous, Urine 0 SEEN /hpf (<or=2+); Red Blood Cells-Urine 0 SEEN /hpf (0-5); Squamous Epithelial Cells - UA 0 SEEN /hpf (5-10); White Blood Cells 0 SEEN /hpf (0-5)
[2024-02-15 17:19] LABS: Color, Urine Yellow (Yellow); Glucose, Dipstick Normal (Normal); Ketone-Dipstick Negative (Negative); Leukocyte Esterase-Dipstick Negative /ul (Negative); Nitrite-Dipstick Negative (Negative); Occult Blood-Urine 25 /ul (Negative); Protein-Dipstick Negative (Negative); Urine Bilirubin Dipstick Negative (Negative); Urine Clarity Clear (Clear); Urine Urobilinogen Normal (Normal); Urine pH 6.5 (5.0 - 8.0)
== END 2024-02-15 23:59 | disposition home or self-care (01) ==
PROVIDERS: PCP Internal Medicine; Visit Provider Nurse Practitioner
DX: R82.90 Unspecified abnormal findings in urine (principal)
CPT/HCPCS: 81001

== ENCOUNTER 2024-03-03 10:55 | Outpatient (CLI) | payer OTHER, SELFPAY ==
--- NOTE | 2024-03-03 10:59 | ECHOD_ITS ---
Reason For Study: Syncope Procedure This was a 2D Doppler, Color Flow transthoracic echocardiogram. Exam performed in department. Left Ventricle Normal LV size. Left ventricular systolic function is normal. The left ventricular ejection fraction is 60 %. No regional wall motion abnormalities noted. Right Ventricle Normal RV size. Normal systolic function. Atria Normal left atrium. Normal right atrium. Mitral Valve Normal mitral valve. Tricuspid Valve Normal tricuspid valve. Mild (1+) tricuspid valve insufficiency. Pulmonary artery systolic pressure is 23 mmHg. Aortic Valve Trisinus/trileaflet aortic valve. Pulmonic Valve Normal pulmonic valve. Great Vessels Normal aortic root. The pulmonary artery is normal size. Normal inferior vena cava. Pericardium/Pleural No pericardial effusion. MMode/2D Measurements & Calculations LVIDd: 4.5 cm IVSd: 0.87 cm Ao root diam: 2.7 cm LVIDs: 3.3 cm LVPWd: 0.93 cm RVDd: 3.4 cm FS: 26.4 % LAV(MOD-bp): 30.9 ml LVAd ap4: 25.4 cm2 SV(MOD-sp4): 40.2 ml LAV(MOD-bp) Indexed: 16.5 ml/m2 LVLd ap4: 7.3 cm LAV(MOD-sp2): 31.3 ml EDV(MOD-sp4): 73.5 ml LAV(MOD-sp4): 30.7 ml EDV(sp4-el): 75.4 ml LVAs ap4: 15.6 cm2 LVLs ap4: 6.2 cm ESV(MOD-sp4): 33.2 ml ESV(sp4-el): 33.4 ml EF(MOD-sp4): 54.8 % EF(sp4-el): 55.7 % SV(sp4-el): 42.0 ml LA A4 area: 13.8 cm2 LA dimension(2D): 3.5 cm RA A4 area: 10.5 cm2 TAPSE: 2.2 cm Time Measurements MV dec time: 0.22 sec Doppler Measurements & Calculations MV E max jj: 78.8 cm/sec Lat Peak E' Jj: 17.3 cm/sec Med Peak E' Jj: 10.3 cm/sec MV A max jj: 58.1 cm/sec E/E' lat: 4.5 E/E' med: 7.6 MV E/A: 1.4 Ao V2 max: 115.9 cm/sec LV V1 max: 102.2 cm/sec MV dec slope: 350.5 cm/sec2 Ao max P.4 mmHg LV V1 max P.2 mmHg Ao V2 mean: 85.9 cm/sec LV V1 mean P.3 mmHg Ao mean P.1 mmHg LV V1 mean: 71.7 cm/sec Ao V2 VTI: 24.5 cm LV V1 VTI: 21.6 cm AV (velocity ratio): 0.88 PA V2 max: 81.5 cm/sec TR max jj: 223.3 cm/sec TR max P.9 mmHg ECHO/Echo Complete Interpretation Summary Normal LV size. Left ventricular systolic function is normal. The left ventricular ejection fraction is 60 %. Structurally normal valves. Ordering Physician: Nola Almazan Referring Physician: Korin Sutherland Performed By: Demetrice Guerrier, RDCS, RVT
--- NOTE | 2024-03-03 17:52 | STRESSREP ---
Stress Test Report Exercise stress test. 44-year-old lady with a history of presyncope Stress protocol: Resting EKG demonstrates normal sinus rhythm with a rate of 75 bpm resting blood pressure is 154/104 mmHg. The patient exercised according to the regular [place] protocol for a total duration of 6 minutes attaining a maximum heart rate of 148 bpm which was 84% of maximum predicted heart rate; the maximum workload was 7 metabolic equivalents. At rest there were no ST or T wave changes noted to suggest ischemia and at peak exercise upsloping ST changes only were noted which did not meet the criteria for ischemia. No clinical angina was noted the test was terminated due to the target heart rate being achieved/fatigue. The peak blood pressure was 184/ 110 mmHg. Rate-pressure product was 26,800. Conclusion: Stress test with no EKG criteria for ischemia at a moderate workload. Hypertensive response to exercise.
== END 2024-03-03 23:59 | disposition home or self-care (01) ==
PROVIDERS: PCP Internal Medicine; Visit Provider Nurse Practitioner
DX: R55 Syncope and collapse (principal)
CPT/HCPCS: 93017; 93306

== ENCOUNTER → 2024-04-25 | Outpatient (CLI) | payer OTHER, SELFPAY ==
[2024-04-25 16:03] LABS: Anion Gap 5 (5-15); BUN 7 mg/dL (7-18); BUN/Creat Ratio 10.7 RATIO (10-20); Calcium,Total 8.7 mg/dL (8.5-10.1); Chloride 108 mmol/L (98-107); Creatinine, Serum 0.66 mg/dL (0.55-1.02); EST Glomerular Filtration Rate 104 mL/min (>60); Est Glom Filt Rate - Afr Amer 126 mL/min (>60); Glucose 92 mg/dL (74-106); Potassium 4.1 mmol/L (3.5-5.1); Sodium Level 140 mmol/L (136-145)
== END | disposition home or self-care (01) ==
LOC: BIMLAB 13:37
PROVIDERS: PCP Internal Medicine; Referring Provider Nurse Practitioner; Visit Provider Nurse Practitioner
DX: I10 Essential (primary) hypertension (principal)
CPT/HCPCS: 36415; 80048

== ENCOUNTER → 2024-07-24 | Outpatient (CLI) | payer OTHER, SELFPAY ==
[2024-07-24 16:17] LABS: Bacteria 0 SEEN /hpf (None Seen); Mucous, Urine 0 SEEN /hpf (<or=2+)
[2024-07-24 16:23] LABS: Color, Urine Yellow (Yellow); Glucose, Dipstick Normal (Normal); Ketone-Dipstick Negative (Negative); Leukocyte Esterase-Dipstick Negative /ul (Negative); Nitrite-Dipstick Negative (Negative); Occult Blood-Urine 10 /ul (Negative); Protein-Dipstick Negative (Negative); Urine Bilirubin Dipstick Negative (Negative); Urine Clarity Clear (Clear); Urine Urobilinogen Normal (Normal)
[2024-07-24 16:37] LABS: Red Blood Cells-Urine 0-5 SEEN /hpf (0-5); Squamous Epithelial Cells - UA 0-5 SEEN /hpf (5-10); White Blood Cells 0-5 SEEN /hpf (0-5)
== END | disposition home or self-care (01) ==
LOC: LABSPEC 12:34
PROVIDERS: PCP Internal Medicine; Referring Provider Physician Assistant; Visit Provider Physician Assistant
DX: R30.0 Dysuria (principal)
CPT/HCPCS: 81001; 87086

== ENCOUNTER → 2024-10-04 | Outpatient (CLI) | payer OTHER, SELFPAY ==
--- NOTE | 2024-10-04 10:09 | BI_ITS ---
PROCEDURE: SCRN MAMM (CAD)W/DANNY BILAT REASON FOR EXAM: F, Age 44 y/o, annual mammographic examination. Prior bilateral breast aspirations. TECHNIQUE: Bilateral screening digital breast tomosynthesis with 2D and 3D images. Computer aided detection. COMPARISON: Prior exam(s) dating back to September 13, 2023.. FINDINGS: The breasts are extremely dense which lowers the sensitivity of mammography. The previously seen dominant density in the left breast has been aspirated. No new abnormality is seen. No suspicious masses, areas of developing architectural distortion, or suspicious calcifications. BI/SCRN MAMM (CAD)W/DANNY BILAT IMPRESSION: BI-RADS 2: BENIGN. RECOMMEND ANNUAL MAMMOGRAPHIC SCREENING. Follow-up code: Routine Follow-up The patient will be notified of the results by letter. Reading Location: [place] [id number]
== END | disposition home or self-care (01) ==
LOC: OPBI 10:08
PROVIDERS: PCP Internal Medicine; Referring Provider Internal Medicine; Visit Provider Internal Medicine
DX: Z12.31 Encounter for screening mammogram for malignant neoplasm of breast (principal)
CPT/HCPCS: 77063; 77067

== ENCOUNTER → 2025-01-10 | Outpatient (CLI) | payer OTHER, SELFPAY | END | disposition home or self-care (01) | LOC: LABSPEC 15:34 | PROVIDERS: PCP Internal Medicine; Referring Provider Nurse Practitioner Women's Health; Visit Provider Nurse Practitioner Women's Health | DX: R10.2 Pelvic and perineal pain (principal); Z12.4 Encounter for screening for malignant neoplasm of cervix | CPT/HCPCS: 87086; 87624; 88175; G0145 ==

== ENCOUNTER → 2025-01-19 | Outpatient (CLI) | payer OTHER, SELFPAY ==
--- NOTE | 2025-01-19 09:02 | US_ITS ---
PROCEDURE: PELVIC W/ TRANSVAGINAL 01/19/2025 REASON FOR EXAM: PAIN TECHNIQUE: Transabdominal and transvaginal pelvic ultrasound. Color and spectral doppler analysis of the ovaries. COMPARISON: None. FINDINGS: Measurements: Uterus: 8.9 x 4.5 x 6.2 cm for volume of 128.6 mL Endometrial Thickness: 0.2 cm Right Ovary: 4.1 x 1.8 x 2.6 cm for volume of 9.9 mL Left Ovary: 3.0 x 1.6 x 2.6 cm for volume of 6.4 mL Uterus: Retroverted. Normal contour and myometrial echotexture. Punctate myometrial calcification measuring 0.4 cm. Endometrium: Normal echotexture. Intrauterine device tip is less than 1 cm from the fundal end of the endometrium. Right ovary: Normal size and echotexture. Left ovary: Normal size and echotexture. Cul-de-sac: No free intraperitoneal fluid identified. DOPPLER: Color Doppler: Normal color flow doppler signal at both ovaries. Spectral Doppler: Normal arterial inflow and venous outflow signal at both ovaries. US/Pelvic w/ Transvaginal IMPRESSION: Unremarkable pelvic ultrasound. The intrauterine device appears appropriately positioned. Reading Location: [facility]
== END | disposition home or self-care (01) ==
LOC: US 08:48
PROVIDERS: PCP Internal Medicine; Referring Provider Nurse Practitioner Women's Health; Visit Provider Nurse Practitioner Women's Health
DX: R10.2 Pelvic and perineal pain (principal)
CPT/HCPCS: 76830; 76856

== ENCOUNTER → 2025-02-01 | Outpatient (CLI) | payer OTHER, SELFPAY ==
[2025-02-01 15:40] LABS: Absolute Neutrophil Count 2.6 X10^3/uL (2.0-7.7); Basophil# 0.03 X10^3/uL; Basophil% 0.6 % (0-1); Eosinophil# 0.04 X10^3/uL; Eosinophils% 0.8 % (0-5); Hematocrit 37.7 % (37-47); Hemoglobin 12.6 g/dL (12.0-15.0); Mean Corp Hgb Conc 33.4 g/dL (32-36); Mean Corpuscular Hgb 30.1 pg (27.0-32.0); Mean Corpuscular Volume 90.2 fL (81-99); Mean Platelet Vol. 10.1 fl (6.2-12.0); Monocyte# 0.34 X10^3/uL; Monocyte% 6.8 % (0-10); NRBC Flagged by Analyzer 0 % (0-5); Neutrophil # 2.57 X10^3/uL (2.7-7.7); Neutrophil % 51.4 % (47-70); Platelet Count 224 K/mm3 (150-450); RBC Distribution Width CV 12.7 % (11.6-14.6); RBC Distribution Width SD 41.9 fl (35.1-43.9); Red Blood Count 4.18 M/mm3 (4.2-5.4)
[2025-02-01 16:11] LABS: ALB/GLOB Ratio 1.6 RATIO (0.9-2.4); AST(SGOT) 16 U/L (<=31); Alanine Aminotransfer ALT/SGPT 7 U/L (<=34); Albumin, Serum 4.2 g/dL (3.5-5.0); Alkaline Phosphatase 58 U/L (35-104); Anion Gap 11 (5-15); BUN 7 mg/dL (4-19); BUN/Creat Ratio 9.5 RATIO (10-20); Calcium,Total 8.7 mg/dL (7.6-11.0); Carbon Dioxide 22.4 mmol/L (21.0-32.0); Chloride 105 mmol/L (98-108); Creatinine, Serum 0.71 mg/dL (0.70-1.20); EST Glomerular Filtration Rate 107 (>60); Globulin 2.6 g/dL (2.2-4.2); Glucose 90 mg/dL (70-99); Protein, Total 6.8 g/dL (5.9-8.4); Sodium Level 139 mmol/L (133-145); Thyroid Stim Hormone (TSH) 0.312 uIU/mL (0.300-4.200); Total Bilirubin 0.36 mg/dL (0.00-1.30); Vitamin D,25 Hydroxy 17.1 ng/mL (30-100)
== END | disposition home or self-care (01) ==
LOC: BIMLAB 14:19
PROVIDERS: PCP Internal Medicine; Referring Provider Internal Medicine; Visit Provider Internal Medicine
DX: I10 Essential (primary) hypertension (principal); F32.1 Major depressive disorder, single episode, moderate
CPT/HCPCS: 36415; 80053; 82306; 84443; 85025